=== PATIENT | female | born 1995 | race Caucasian/White ===

== ENCOUNTER 2018-10-31 06:22 | Inpatient (IN) | payer MEDICAID ==
[~2018-10-31] VITALS: Ht 157.5 cm; Wt 87.1 kg
[2018-10-31] VITALS (12 sets, daily range): BP systolic 103–128; BP diastolic 64–81; Ht 157.5 cm; Wt 87.1 kg
[~2018-10-31 06:22] MED LIST: OMEPRAZOLE20 M1 PO
[2018-10-31 06:29] LABS: HEMATOCRIT 28.7 % (36.0-48.0); HEMOGLOBIN 9.3 g/dL (12-16); MCH 26.3 pg (26.0-34.0); MCHC 32.4 g/dL (31.0-37.0); MCV 81.3 fL (80.0-100.0); RBC 3.53 10x6/uL (4.00-5.40); RDW 14.5 % (11.5-14.5)
[2018-10-31 06:44] LABS: APPEARANCE SL CLDY (CLEAR); BACTERIA MANY /hpf (NONE SEEN); BILIRUBIN NEGATIVE (NEGATIVE); COLOR YELLOW (YELLOW); GLUCOSE NEGATIVE (NEGATIVE); KETONE NEGATIVE (NEGATIVE); MUCUS <1+ /lpf (NONE SEEN); NITRITE NEGATIVE (NEGATIVE); PROTEIN TRACE mg/dL (NEGATIVE); UROBILINOGEN NORMAL (NORMAL)
--- NOTE | 2018-10-31 09:07 | NUR ---
FUNDUS MIDLINE, FIRM, 1 FINGER BREADTH BELOW UMBILICUS. PERIPAD IN PLACE. RUBRA LOCHIA SCANT NOTED. NO CLOTS PRESENT. WILL CONTINUE TO MONITOR.
--- NOTE | 2018-10-31 09:30 | NUR ---
Received pt to room via bed from recovery, she is awake and alert talking with her spouse who is at bedside. VSS as charted on flowsheet. fundus firm at u/u with light lochia noted, towels and pads changed. NS with 20units pitocin infusing via pump per orders. SCD bilat in place and pump started. Musa cath to bedside drain with 200ml clear urine noted. rates pain at incision site at 4/10 at this time. Family allowed to room, and pt given nursery number so that she can check on infant. side rails up x 2 with phone and call light in reach.
--- NOTE | 2018-10-31 09:45 | NUR ---
Fundus firm at u/u with light bleeding and no clots noted with massage. infant brought to room by Pedi along with nursery nurse. Assistance provided with initial .
--- NOTE | 2018-10-31 10:00 | NUR ---
Dilaudid PSYCHIATRIC TECHNICIAN ASSISTANT started with bolus dose given per orders. Pt states understanding of use. Rates pain at incision at 7/10. Tordal given ivp at this time also. Large ice water per request. Assistance given with maintaining her privacy to change breast and continue feeding. side rails up x 2 with call light in reach and family at bedside.
--- NOTE | 2018-10-31 10:20 | NUR ---
fundus firm at u/u with scant bleeding noted. ice pack removed per pt request. rates pain at 5/10 at this time. infant remains in room being held by family member. pt denies any needs. call light in reach.
--- NOTE | 2018-10-31 11:07 | NUR ---
fundus firm at u/u with scant bleeding noted. towels and chux changed and pt able to tilt to left side. rates pain at 3/10 and states cramps are gone just burning at this time. denies any needs, call light in reach with side rails up x 2. family remains at bedside.
--- NOTE | 2018-10-31 12:00 | NUR ---
VIANEY CARE PER RN WITH WARM WET CLOTHS. TOWELS AND CHUX CHANGED, FUNDUS FIRM AT U/U WITH LIGHT TO MODERATE BLEEDING NOTED. SHE RATES HER PAIN AT 4/10. FAMILY AT BEDSIDE.
--- NOTE | 2018-10-31 13:15 | NUR ---
LARGE ICE WATER PER REQUEST. NO OTHER NEEDS AT THIS TIME.
--- NOTE | 2018-10-31 14:45 | NUR ---
TO ROOM TO ASSIST PT WITH CHANGING POSITIONS AND CLEANING UNDERPADS. SHE ASK IF SHE CAN BREASTFEED FIRST, ALSO EXPLAINS THAT INFANT JUST BROUGHT TO ROOM FROM NURSERY. WILL CALL WHEN SHE IS FINISHED.
--- NOTE | 2018-10-31 15:39 | NUR ---
PT CALLS OUT TO INFORM NURSE SHE HAS FINISHED BREAST FEEDING. THIS RN TO ROOM PT ABLE TO MOVE HERSELF UP IN BED AND RAISE BOTTOM SO THAT UNDERPADS CAN BE CHANGED, VIANEY CARE/HENRY CARE COMPLETED AT THIS TIME ALSO, 300ML NOTED TO HENRY CANISTER. RATES PAIN AT 3/10, FUNDUS FIRM AT U/U WITH LIGHT BLEEDING NOTED. GOWN CHANGED AND PT TILTS SELF TO RIGHT SIDE. FAMILY AT BEDSIDE ALONG WITH INFANT IN HIS CRIB. SIDE RAILS UP X 2 WITH PHONE AND CALL LIGHT WITH IN HER REACH.
--- NOTE | 2018-10-31 15:44 | NUR ---
LARGE ICE WATER PER REQUEST. DENIES ANY OTHER NEEDS AT THIS TIME.
[2018-10-31 16:11] LABS: BASOPHILS 0.1 % (0-2); EOSINOPHILS 0.2 % (0-7); HEMATOCRIT 25.2 % (36.0-48.0); HEMOGLOBIN 8.2 g/dL (12-16); IMMATURE GRANULOCYTES 0.5 % (0-5); LYMPHOCYTES 16.5 % (15-50); MCH 26.6 pg (26.0-34.0); MCHC 32.5 g/dL (31.0-37.0); MCV 81.8 fL (80.0-100.0); MEAN PLATELET VOLUME 11.2 fL (7.4-10.4); MONOCYTES 8.1 % (2-11); NEUTROPHILS 74.6 % (40-80); PLATELET COUNT 172 10x3/uL (130-400); RBC 3.08 10x6/uL (4.00-5.40); RDW 14.2 % (11.5-14.5); WBC 9.9 10x3/uL (4.8-10.8)
--- NOTE | 2018-10-31 18:18 | NUR ---
PT SITTING UP IN BED VISITING WITH FRIENDS/FAMILY RATES PAIN AT 3/10. FUNDUS FIRM AT U/U WITH LIGHT BLEEDING NOTED TO UNDERPAD. PT ASK IF UNDERPADS COULD BE CHANGED WHEN VISITORS LEFT AND WILL CALL NURSE TO NOTIFY HER WHEN THIS OCCURED. IVAC VOLUME CLEARED, HENRY EMPTIED. LARGE ICE WATER PER REQUEST. SIDE RAILS UP X 2 WITH PHONE AND CALL LIGHT IN REACH.
--- NOTE | 2018-10-31 18:55 | NUR ---
REPORT COMPLETED TO 7A-7P
--- NOTE | 2018-10-31 19:40 | NUR ---
RN TO PT BS. PT RESTING IN BED IN SEMI-FOWLERS POSITION, INFANT. PT IN NO ACUTE DISTRESS. PT EXPRESSES DESIRE TO AMBULATE. INFORMED PT WOULD ASK MD. PT DENIES ANY NEEDS AT THIS TIME. BED IN LOW POSITION, SIDE RAILS UP TIMES 2, CALL LIGHT AND PHONE IN REACH. SO AT PT BS FOR SUPPORT AND ASSISTANCE. REMAINS AT PT BS FOR COUPLET CARE. WILL RETURN TO PERFORM VADIM WHEN EFFORT IS COMPLETE.
--- NOTE | 2018-10-31 20:05 | NUR ---
SPOKE WITH DR. WATTS REGARDING PT DESIRE TO AMBULATE. PER MD, MAY D/C IV FLUIDS AND PAIN MEDICATION, SALINE LOCK IV, D/C HENRY, PT MAY AMBULATE. TRANSITION PT TO PO MEDICATION FOR PAIN, PER DR. WATTS'S STANDING ORDERS.
--- NOTE | 2018-10-31 20:35 | NUR ---
RN TO PT BS. PT RESTING IN BED IN SEMI-FOWLERS POSITION, HOLDING . PT IN NO ACUTE DISTRESS. VADIM PERFORMED. SEE FLOWSHEET. POC DISCUSSED WITH PT AND QUESTIONS ANSWERED. HENRY REMOVED, TIP INTACT, 90ML CONCENTRATED YELLOW URINE REMAIN IN BAG. IV SALINE LOCKED. PT ASSISTED TO BR BY SO. PT AMBULATES WIHOUT DIFFICULTY AND WITH MINIMAL ASSISTANCE. PT ABLE TO VOID. IV SITE COVERED AND PT ALLOWED TO GET IN SHOWER. SO REMAINS WITH PT FOR ASSISTANCE. COMPLETE LINEN CHANGE TO BED. ASKED PT TO NOTIFY RN WHEN SHE RETURNS TO BED, WILL PROVIDE WITH PO PAIN MEDICATION. PT VERBALIZES UNDERSTANDING. BED IN LOW POSITION, SIDE RAILS UP TIMES 2, CALL LIGHT AND PHONE IN REACH. SO REMAINS AT PT BS FOR SUPPORT AND ASSISTANCE. REMAINS AT PT BS FOR COUPLET CARE. WILL CONT TO MONITOR PT STATUS.
--- NOTE | 2018-10-31 21:35 | NUR ---
PT CALLS, HAS RETURNED TO BED. RN TO PT BS. PT RESTING IN BED IN SEMI-FOWLERS POSITION, IN NO ACUTE DISTRESS. 1 TAB NORCO 10 AND 1 TAB MOTRIN PROVIDED TO PT AT THIS TIME WITH MUG OF WATER. PT DENIES ANY FURTHER NEEDS. BED IN LOW POSITION, SIDE RAILS UP TIMES 2, CALL LIGHT AND PHONE IN REACH. SO REMAINS AT PT BS FOR SUPPORT AND ASSISTANCE. WILL CONT TO MONITOR PT STATUS.
--- NOTE | 2018-10-31 23:30 | NUR ---
RN TO PT BS. PT RESTING IN BED IN SEMI-FOWLERS POSITION, TEXTING ON PHONE. PT IN NO ACUTE DISTRESS. VS TAKEN AND WNL. PT DENIES ANY NEEDS AT THIS TIME. BED IN LOW POSITION, SIDE RAILS UP TIMES 2, CALL LIGHT AND PHONE IN REACH. SO AT PT BS FOR SUPPORT AND ASSISTANCE. WILL CONT TO MONITOR PT STATUS.
--- NOTE | 2018-11-01 01:27 | NUR ---
RN TO PT BS FOR ROUNDS. PT RESTING IN BED IN HIGH FOWLERS POSITION, HOLDING . PT IN NO ACUTE DISTRESS. PT DENIES ANY NEEDS AT THIS TIME. BED IN LOW POSITION, SIDE RAILS UP TIMES 2, CALL LIGHT AND PHONE IN REACH. SO REMAINS AT PT BS FOR SUPPORT AND ASSISTANCE. INFANT AT PT BS FOR COUPLET CARE. WILL CONT TO MONITOR PT STATUS.
--- NOTE | 2018-11-01 03:46 | NUR ---
RN TO PT BS FOR ROUNDS. PT RESTING IN BED IN SEMI-FOWLERS POSITION, IN NO ACUTE DISTRESS. PT DENIES ANY NEEDS AT THIS TIME. BED IN LOW POSITION, SIDE RAILS UP TIMES 2, CALL LIGHT AND PHONE IN REACH. SO REMAINS AT PT BS FOR SUPPORT AND ASSISTANCE. WILL CONT TO MONITOR PT STATUS.
--- NOTE | 2018-11-01 05:25 | NUR ---
PT C/O PAIN 7 OF 10 ON NUMERIC PAIN SCALE, NORCO-10/325MG TAB ADMINISTERED WITH SIPS OF WATER PER PT REQUEST, INFANT IN ARMS, RESP EVEN AND UNLABORED, SPOUSE AT BS PROVIDING PT SUPPORT. CALL LIGHT IN EASY REACH, CONTINUE TO MONITOR.
[2018-11-01 07:26] LABS: RAPID PLASMA REAGIN Non Reactive (Non Reactive)
[2018-11-01 07:41] LABS: BASOPHILS 0.1 % (0-2); EOSINOPHILS 1.1 % (0-7); HEMATOCRIT 23.9 % (36.0-48.0); HEMOGLOBIN 7.7 g/dL (12-16); IMMATURE GRANULOCYTES 0.6 % (0-5); LYMPHOCYTES 19.4 % (15-50); MCH 26.3 pg (26.0-34.0); MCHC 32.2 g/dL (31.0-37.0); MCV 81.6 fL (80.0-100.0); MEAN PLATELET VOLUME 11.1 fL (7.4-10.4); MONOCYTES 9.2 % (2-11); NEUTROPHILS 69.6 % (40-80); PLATELET COUNT 172 10x3/uL (130-400); RBC 2.93 10x6/uL (4.00-5.40); RDW 14.6 % (11.5-14.5); WBC 7.8 10x3/uL (4.8-10.8)
[2018-11-01 08:00] VITALS: BP 117/58
--- NOTE | 2018-11-01 08:00 | NUR ---
TO PTS ROOM FOR AM ASSESSMENT, SEE FLOWSHEET. PT DENIES DIZZINESS OR SOB, STATES SHE DID "PASS SEVERAL CLOTS AND BLED QUITE A BIT THROUGH THE NIGHT, BUT THE LAST COUPLE OF TIMES I'VE BEEN UP, THERE WAS BARELY ANY BLOOD ON MY PADS". FUNDUS FIRM, U/1, ABD PALPATES SOFT. INCISION NOTED TO BE C/D/I. FRESH ICE WATER SERVED TO PT, PT HAS BREAKFAST TRAY ON BEDSIDE TABLE. SIG OTHER ASLEEP AT BEDSIDE. SEE EMAR FOR ALL MEDS ADM BY THIS RN. SR UP X2, CALL LIGHT AND PHONE WITHIN REACH.
--- NOTE | 2018-11-01 08:30 | NUR ---
DR. WATTS ON ON UNIT, INFORMED THAT PT STATES SHE DID "BLEED QUITE A BIT LAST NIGHT", INFOMRMED MD THAT PT DENIES DIZZINESS OR SOB. VERBAL ORDER RECEIVED TO ADM 1 UNIT PRBC'S.
--- NOTE | 2018-11-01 09:30 | NUR ---
TO PT'S ROOM, PT REQUESTS A NORCO 5 MG INSTEAD OF THE 10 MG, STATES "I THINK THE 10 MG MADE ME TOO SLEEPY". MEDICATION EXPECTED, VS SIDE EFFECTS DISCUSSED WITH PT. MEDICATION ADM SCHEDULE REVIEWED WITH PT. PT DENIES ALL OTHER NEEDS AT THIS TIME. PT IS SITTING UP IN THE BED, INFANT, SR UP X2, CALL LIGHT AND PHONE WITHIN REACH. SIG OTHER IN ROOM.
--- NOTE | 2018-11-01 09:45 | NUR ---
PLAN OF CARE DISCUSSED WITH PT REGARDING BLOOD ADM, 1 UNIT. PT STATES "I WOULD LIKE TO THINK ABOUT IT BEFORE I AGREE TO GETTING BLOOD FIRST". BLOOD ADM EDUCATION PAPERS PROVIDED TO PT.
--- NOTE | 2018-11-01 12:00 | NUR ---
REGULAR LUNCH TRAY SERVED TO PT. PT SITTING UP IN THE BED, FAMILY AT BEDSIDE, AND SIG OTHER AT BEDSIDE HOLDING . PT FRESH GLASS OF ICE WATER SERVED TO PT. PT DENIES ALL OTHER NEEDS AT THIS TIME. SR UP X2, CALL LIGHT AND PHONE WITHIN REACH.
--- NOTE | 2018-11-01 19:26 | NUR ---
ROOM CHECK, PT PUMPING BREASTS AT THIS TIME. WILL COME BACK FOR VS AND ASSESSMENT WHEN FINISHED. CUP OF ICE PROVIDED PER PT REQUEST. MARGARET ACOSTA
[2018-11-01 19:55] VITALS: BP 116/73
--- NOTE | 2018-11-01 19:55 | NUR ---
REC'D PT SITTING UP IN BED. VS WNL. RESP EVEN AND UNLABORED. LUNGS CLEAR BILATERALLY. BOWEL SOUNDS PRESENT X4. FUNDUS FIRM U/2. LOCHIA SMALL. PT DENIES PAIN AT THIS TIME, WAS RECENTLY MEDICATED. IN ROOM AND APPEAR TO BE BONDING WELL. S/O AT BEDSIDE AND SUPPORTIVE. PT TO CALL FOR SUPPORT NEEDED. MARGARET ACOSTA
--- NOTE | 2018-11-01 21:30 | NUR ---
ROOM CHECK, PLACED SKIN TO SKIN, MOM WANTING TO FEED BUT INFANT REFUSED TO LATCH. SUGGESTED PLACING SKIN TO SKIN AND TRY AGAIN IN ABOUT 30 MINUTES. MARGARET ACOSTA
--- NOTE | 2018-11-01 22:10 | NUR ---
TO PT'S ROOM TO OFFER SUPPORT. STIMULATED, TAUGHT PT HAND EXPRESSION. EXPRESSED APPROX 2 ML INTO SPOON AND GIVEN TO . INFANT THEN LATCHED TO BREAST. SUCKLING INTERMITTENTLY. REQUIRES STIMULATION TO SUSTAIN LATCH AND SUCK. PT HAS ADEQUATE SUPPLY OF COLOSTRUM EVIDENCED BY LEAKAGE WHEN BREASTS ARE STIMULATED. S/O AT BEDSIDE, SUPPORTIVE AND COMFORTING. PT WILL CALL IF ADDITIONAL ASSISTANCE IS NEEDED. MARGARET RN, IBCLC
--- NOTE | 2018-11-02 00:30 | NUR ---
PT RESTING WITH EYES CLOSED. RESP EVEN AND UNLABORED. MARGARET ACOSTA
--- NOTE | 2018-11-02 01:25 | NUR ---
VS TAKEN, WNL. PT INFANT. GOOD LATCH AND POSITION NOTED. PT REQUESTING PAIN MEDICATION FOR C/O PAIN 01/25. SEE E-MAR FOR DOCUMENTATION. MARGARET ACOSTA
[2018-11-02 01:35] VITALS: BP 132/53
--- NOTE | 2018-11-02 02:59 | NUR ---
ROOM CHECK, PT RESTING WITH EYES CLOSED. RESP EVEN AND UNLBORED. MARGARET ACOSTA
[2018-11-02 04:40] VITALS: BP 113/69
--- NOTE | 2018-11-02 04:40 | NUR ---
PT AWAKE AND ALERT . VS WNL. C/O PAIN 02/24. WILL MEDICATE ACCORDINGLY. ASSIST PT TO LATCH . MARGARET ACOSTA
--- NOTE | 2018-11-02 04:50 | NUR ---
NORCO 5/325 ADMINISTERED FOR C/O PAIN 02/24. SEE E-MAR FOR DOCUMENTATION. MARGARET ACOSTA
--- NOTE | 2018-11-02 07:45 | NUR ---
AM ASSESSMENT COMPLETED CHARTED ON FLOWSHEET, RATES PAIN AT 0/10. FUNUDS FIRM AT U/U WITH LIGHT BLEEDING NOTED. DENIES ANY NEEDS AT THIS TIME.
--- NOTE | 2018-11-02 08:35 | NUR ---
Charan Brandi Motta 11/02/18 S: Patient states she thinks is going pretty good. This is her second baby and she thinks he is doing better with latching. He has been sleepy and sometimes it's hard to wake him but when he does latch, he does a good job. Denies questions or concerns. Verbally agrees CLC can help with latching . Denies pain with latching . O: Patient sitting up in bed, FOB holding infant attempting to wake to nurse. Offered to asset infant latch. Observed being latch to the left breast. Offered tips to help with latching by turning infant completely tummy to tummy, nose opposite of nipple, gently hold infant head and allow to self latch. Asked if any pain or discomfort with nursing infant? Infant latched of the left breast at 8:15. Infant had round cheeks, mouth 140 degrees, sucking in a rocking motion, and mother and infant appear content with feeding. came off the breast and colostrum could be seen on the side of his cheek. immediately latch back to the left breast. take time, practice, and patience. Explained position, how to verify is latched correctly, benefits of skin to skin and the importance of practicing responsive feeding. Provided tips on how to wake a sleeping baby and explained normal feeding patterns for an exclusively breastfed . Explained how to help and prevent engorgement. Asked if any questions or concerns? Provided work cell number for any questions relating to . Please let nursery staff know if you need any help with . Infant remains latched at the breast when CLC leaves room. A: Patient sitting up in bed attempting to wake infant to nurse. P: Continue to promote exclusively during hospital visit. Viki Cadena, MARCELO
--- NOTE | 2018-11-02 09:00 | NUR ---
VERIFIED THAT PT WAS AWARE THAT PEDI WOULD NOT MAKE ROUNDS UNTIL AROUND NOON TODAY. STATES HER UNDERSTANDING. CONTINUE TO DENY PAIN OR NEEDS.
--- NOTE | 2018-11-02 11:30 | NUR ---
ORDER PLACED IN [employer] FOR PT LUNCH REQUEST. NO OTHER NEEDS AT THIS TIME.
--- NOTE | 2018-11-02 12:53 | NUR ---
PT DID NOT EAT LUNCH. REQUESTS CHICKEN STRIPS AND FRIES AND GUEST TRAY. STATES HAS MEAL TICKET. DIETARY MESSAGE SENT AND T/C MADE TO NOTIFY DIETARY.
--- NOTE | 2018-11-02 13:12 | NUR ---
PT C/O ABDOMINAL CRAMPING OF "5" ON 0-10 PAIN SCALE. MOTRIN 600 MG GIVEN PO ORDERED. PT INSTRUCTED ON MED. VERBALIZES UNDERSTANDING.
[2018-11-02] MEDS ORDERED: NORCO 10-325 TA1 TAB PO (13:28)
[2018-11-02] MEDS ORDERED: MOTRIN600 MG PO (13:28)
--- NOTE | 2018-11-02 13:49 | NUR ---
PT C/O ABDOMINAL CRAMPING OF "5" ON 0-10 PAIN SCALE. NORCO 5/325 GIVEN PO ORDERED. PT ALSO GIVEN TDAP 0.5 ML TO RIGHT DELTOID. BANDAID TO SITE. PT CY WELL.
--- NOTE | 2018-11-02 13:55 | NUR ---
DISCHARGE INSTRUCTIONS GIVEN TO PT. PT VERBALIZES UNDERSTANDING OF ALL INSTRUCTIONS. COPIES GIVEN TO PT. RX FOR NORCO 10 AND MOTRIN GIVEN TO PT. PT PREPARES FOR DISCHARGE.
--- NOTE | 2018-11-18 12:09 | OP ---
PATIENT NAME: NEGRO STATON MEDICAL RECORD: [id number] :96 LOCATION:[id number] ADMISSION DATE:10/31/18 SURGEON: VAUGHN RIZZO MD DATE OF OPERATION: 10/31/2018 PREOPERATIVE DIAGNOSES: 1. Term intrauterine at 39 weeks. 2. History of previous section. POSTOPERATIVE DIAGNOSES: 1. Term intrauterine at 39 weeks. 2. History of previous section. PROCEDURE: Repeat low transverse section. SURGEON: Vaughn Rizzo MD ESTIMATED BLOOD LOSS: 1000 cc. INTRAVENOUS FLUIDS: Per anesthesia record. ANESTHESIA: Regional via spinal. ESTIMATED BLOOD LOSS: 1000 cc. IV FLUID: Per anesthesia record. FINDINGS: 1. Viable male infant. 2. Apgars 9 at 1 and 9 at 5. 3. Placenta delivered manually intact, 3-vessel cord noted. 4. Normal adnexa bilaterally. SPECIMENS: Placenta and cord for gases. COMPLICATIONS: None apparent. DESCRIPTION OF PROCEDURE: The patient taken to the operating room where regional anesthesia via spinal was achieved without difficulty. The patient then prepped and draped in normal sterile fashion in the dorsal supine position. SCDs were on and functioning normally. Musa catheter had been placed and was draining freely. Following prep and drape, a Pfannenstiel skin incision was made, extended down with the underlying subcutaneous fat to level of fascia. The fascia was then excised in the midline with a scalpel and extended bilaterally using the Beckett scissors. The superior and inferior aspect of the fascial incision were then grasped with Palomo clamps times 2, tented upward, and sharply dissected from the underlying rectus muscle using the Bovie cautery and Beckett scissor. Rectus muscle was then bluntly in the midline. The peritoneum entered sharply at the superior aspect of the incision. Several adhesions were then removed from the anterior face of the uterus connected to the peritoneum and bladder. After careful dissection, a low transverse incision was made in the uterus and extended superiorly and inferiorly using the Pelosi method. The 's head was delivered, was found to be extended and a Kiwi vacuum was placed on the occiput for correction of head flexion, which resulted in immediate delivery. No traction was placed on the neck. One OPERATIVE REPORT [id number] NEGRO STATON application approximately 3 second application time. No pop offs noted. No evidence of trauma. The body was then delivered atraumatically after the vacuum was removed and the infant was bulb suctioned. The cord was clamped times 2 and cut and the was handed to the awaiting nursery team. Cord was obtained for gases. The placenta was then removed manually intact, 3-vessel cord was noted. The uterus was exteriorized, cleared of all clots and debris and vigorously massaged until good hemostasis was noted. The fascial incision was then repaired with 0 Vicryl in a running locked fashion times 2. Good hemostasis noted. Posterior cul-de-sac was then thoroughly irrigated and the uterus was placed in the pelvis. Anterior cul-de-sac was then irrigated and the uterine incision was found to be hemostatic. Counts were correct times 2 for sponges, needles, and instruments. The fascia was then repaired with 0 loop PDS times 1 and the skin repaired using 3-0 Monocryl in a running locked fashion using a 3-0 Vicryl Sheldon needle. The patient tolerated the procedure well, was transferred to postanesthesia recovery stable without incident. TRANSINT:[id number] Voice Confirmation ID: [id number] DOCUMENT ID: [id number] VAUGHN RIZZO MD at 1209 CC: [id number] DICTATION DATE: 11/17/18 170 ENVIRONMENTAL REMEDIATION SPECIALIST: 11/17/18 [id number] DIS IN 11/02/18 [facility] [address] [place] [address]
== END 2018-11-02 13:55 | disposition home or self-care (01) | DRG 788 ==
LOC: D.LD 06:22 → D.SDCHOLD 09:15 → D.LD 10:22
PROVIDERS: ADMIT Obstetrics & Gynecology
PROC: 10D00Z1 Extraction of Products of Conception, Low, Open Approach (ICD-10-PCS; principal; 2018-10-31 09:15)
DX: O34.211 Maternal care for low transverse scar from previous cesarean delivery (principal); Z3A.39 39 weeks gestation of pregnancy; Z37.0 Single live birth